=== PATIENT | female | born 1985 | race Caucasian/White ===

== ENCOUNTER 2017-02-08 19:02 | Emergency (ER) | payer OTHER ==
[~2017-02-08] VITALS: Ht 162.6 cm; Wt 127.2 kg
[~2017-02-08 19:02] MED LIST: BENTYL10 MG PO; GLUCOPHAGE XR750 MG PO; JUNEL1 EACH PO; NOHOMEMEDS; PROBIOTIC1 EAC1 PO; ZOFRAN ODT4 MG PO
[2017-02-08 20:27] LABS: ADD MIUA? NO; BILIRUBIN NEGATIVE; BLOOD NEGATIVE; COLOR YELLOW ((YELLOW)); GLUCOSE (STRIP) NEGATIVE; KETONES NEGATIVE; LEUKOCYTES NEGATIVE; NITRITE NEGATIVE; PROTEIN (STRIP) NEGATIVE; SPECIFIC GRAVITY 1.025 (1.000-1.030); UROBILINOGEN 0.2 MG/DL (0.2-1.0)
[2017-02-08] MEDS ORDERED: KEFLEX500 MG PO (21:02)
[2017-02-08] MEDS ORDERED: PYRIDIUM200 MG PO (21:02)
[2017-02-08] MEDS ORDERED: MOTRIN800 MG PO (21:02)
[2017-02-08 22:15] VITALS: BP 147/104
== END 2017-02-08 22:16 | disposition home or self-care (01) ==
LOC: EME 19:02
PROVIDERS: Physician Assistant
DX: N30.00 Acute cystitis without hematuria (principal); E11.9 Type 2 diabetes mellitus without complications
CPT/HCPCS: 81003; 87086; 99281; 99283

== ENCOUNTER 2017-02-27 18:33 | Emergency (ER) | payer OTHER ==
[~2017-02-27] VITALS: Ht 162.6 cm; Wt 127.9 kg
[~2017-02-27 18:33] MED LIST changes: +KEFLEX500 MG PO; +MOTRIN800 MG PO; +PYRIDIUM200 MG PO
[2017-02-27 19:36] LABS: ADD MIUA? YES; BILIRUBIN NEGATIVE; BLOOD NEGATIVE; COLOR YELLOW ((YELLOW)); GLUCOSE (STRIP) NEGATIVE; KETONES NEGATIVE; LEUKOCYTES LARGE; NITRITE NEGATIVE; PROTEIN (STRIP) NEGATIVE; SPECIFIC GRAVITY 1.024 (1.000-1.030); UROBILINOGEN 0.2 MG/DL (0.2-1.0)
[2017-02-27] MEDS ORDERED: METFORMIN HCL500 M4 PO (19:39)
[2017-02-27] MEDS ORDERED: METFORMIN HCL500 M1 PO (19:40)
[2017-02-27 20:02] LABS: BACTERIA RARE /HPF; BUDDING YEAST RARE; EPITHELIAL CELLS 1+ /HPF; MUCUS TRACE /LPF; UCUL ADDED? NO; WHITE BLOOD CELLS NONE SEEN /HPF (0-5)
[2017-02-27] MEDS ORDERED: FLAGYL500 MG PO (21:14)
[2017-02-27 21:26] VITALS: BP 139/92
== END 2017-02-27 21:28 | disposition home or self-care (01) ==
LOC: EME 18:33 → RME 18:33
DX: N76.0 Acute vaginitis (principal); B96.89 Other specified bacterial agents as the cause of diseases classified elsewhere; N39.0 Urinary tract infection, site not specified; E11.9 Type 2 diabetes mellitus without complications; Z79.3 Long term (current) use of hormonal contraceptives
CPT/HCPCS: 81003; 99281; 99284

== ENCOUNTER 2017-06-24 09:36 | Emergency (ER) | payer OTHER ==
[~2017-06-24] VITALS: Ht 162.6 cm; Wt 127.0 kg
[~2017-06-24 09:36] MED LIST changes: +FLAGYL500 MG PO; +METFORMIN HCL500 M1 PO; +METFORMIN HCL500 M4 PO
[2017-06-24 09:48] VITALS: BP 140/92
[2017-06-24 10:38] LABS: APPEARANCE CLEAR ((CLEAR)); BILIRUBIN NEGATIVE; BLOOD NEGATIVE; COLOR YELLOW ((YELLOW)); GLUCOSE (STRIP) NEGATIVE; KETONES NEGATIVE; LEUKOCYTES NEGATIVE; NITRITE NEGATIVE; PROTEIN (STRIP) NEGATIVE; SPECIFIC GRAVITY 1.028 (1.000-1.030); UCUL ADDED? NO; UROBILINOGEN 0.2 MG/DL (0.2-1.0)
[2017-06-24] MEDS ORDERED: FLEXERIL10 MG PO (12:42)
[2017-06-24] MEDS ORDERED: LIDODERM 5% P1 PATCH TD (12:42)
[2017-06-24] MEDS ORDERED: NAPROSYN500 MG PO (12:42)
== END 2017-06-24 12:58 | disposition home or self-care (01) ==
LOC: EME 09:36
DX: M54.5 Low back pain (principal); M53.3 Sacrococcygeal disorders, not elsewhere classified; Y99.0 Civilian activity done for income or pay
CPT/HCPCS: 81003; 81025; 99281; 99283